=== PATIENT | male | born 1940 | race Caucasian/White ===

== ENCOUNTER 2018-10-10 08:00 | Day surgery (SDC) | payer OTHER ==
[~2018-10-10] VITALS: Ht 172.7 cm; Wt 80.3 kg
[~2018-10-10 08:00] MED LIST: LISINOPRIL PO; [UNRECOGNIZED DRUG - OTHER] PO; levoxyl
[2018-10-10] MEDS ORDERED: fentaNYL CITRATE/PF 100 MCG/2 ML AMP IVP PRN ×2 (10:30)
[2018-10-10] MEDS ORDERED: ONDANSETRON HCL 4 MG/2 ML VIAL IVP PRN (10:30)
[2018-10-10] MEDS ORDERED: KETOROLAC TROMETHAMINE 30 MG VIAL IVP PRN (10:30)
[2018-10-10] MEDS ORDERED: WATER FOR IRRIGATION,STERILE 1,000 ML IRRIG.SOLN IR ONE (11:10)
[2018-10-10] MEDS ORDERED: LIDOCAINE 2%, 20 ML MDV ONE (11:10)
[2018-10-10] MEDS ORDERED: LR 1,000 ML IV.SOLN IV ONE (11:10)
[2018-10-10] MEDS ORDERED: PROPOFOL 200MG/ 20ML VIAL (DIPRIVAN) IV ONE (11:10)
[2018-10-10] MEDS ORDERED: BUPIVACAINE /PF 0.5% 30 ML VIAL ONE (11:10)
[2018-10-10] MEDS ORDERED: CEFAZOLIN 2 GM IVPB PREMIX 50 ML IV ONE (11:10)
[2018-10-10] MEDS ORDERED: MIDAZOLAM HCL 5 MG/ML VIAL (VERSED) IV ONE (11:10)
[2018-10-10 13:31] VITALS: BP_SYST 143
== END 2018-10-10 13:15 | disposition home or self-care (01) ==
LOC: SMU 08:00 → SDS 08:00
PROVIDERS: ATTEND Surgery
DX: D17.0 Benign lipomatous neoplasm of skin and subcutaneous tissue of head, face and neck (principal)
CPT/HCPCS: 21014; 88304; J0690; J2001; J2250; J2704; J3490; J7120